=== PATIENT | male | born 1995 | race Caucasian/White ===

== ENCOUNTER 2017-06-21 17:23 | Inpatient (IN) | payer MEDICAID, OTHER ==
[~2017-06-21] VITALS: Ht 177.8 cm; Wt 60.6 kg
[2017-06-21 17:35] LABS: BASOPHILS # (AUTO) 0.01 K/uL (0.00-0.20); BASOPHILS % (AUTO) 0.1 % (0.0-2.0); EOSINOPHILS # (AUTO) 0.07 K/uL (0.00-0.70); HEMATOCRIT 47.2 % (41-53); HEMOGLOBIN 16.3 g/dL (13.5-17.5); LYMPHOCYTES # (AUTO) 2.2 K/uL (1.0-4.8); LYMPHOCYTES % (AUTO) 29.6 % (22.0-44.0); MEAN CORPUSCULAR HEMOGLOBIN 30.9 pg (26.0-34.0); MEAN CORPUSCULAR HGB CONC 34.5 G/dL (31.0-37.0); MEAN CORPUSCULAR VOLUME 90 fL (80-100); MONOCYTES # (AUTO) 0.6 K/uL (0.1-1.0); MONOCYTES % (AUTO) 7.4 % (2.0-9.0); NEUTROPHILS # (AUTO) 4.7 K/uL (1.8-7.7); PLATELET COUNT (AUTO) 255 K/uL (150-450); RED BLOOD CELL COUNT(AUTO) 5.27 MIL/uL (4.50-5.90); RED CELL DISTRIBUTION WIDTH 12.5 % (11.5-14.5); WHITE BLOOD COUNT (AUTO) 7.5 K/uL (4.5-11.0)
[2017-06-21 17:47] LABS: ANION GAP 7 mmol/L (8-16); CALCIUM, TOTAL 9.7 mg/dL (8.8-10.5); CARBON DIOXIDE 28 mmol/L (22-29); CHLORIDE 105 mmol/L (98-107); CREATININE 0.99 mg/dL (0.60-1.30); GLOMERULAR FILTR. RATE CALC > 60 mL/min (>60); POTASSIUM 3.8 mmol/L (3.5-5.1); SODIUM SERUM 140 mmol/L (136-145); UREA NITROGEN, BLOOD 13 mg/dL (7-18)
[2017-06-21 17:53] LABS: ALANINE AMINOTRANSFERASE 20 U/L (12-78); ALBUMIN 4.6 g/dL (3.4-5.0); ASPARTATE AMINOTRANSFERASE 14 U/L (15-37); BILIRUBIN,TOTAL 0.4 mg/dL (0.1-1.0); TOTAL PROTEIN, SERUM 8.3 g/dL (6.4-8.2)
[2017-06-21] MEDS ORDERED: ZOLPIDEM TARTRATE 10 MG TABLET PO PRN (18:45)
[2017-06-21] MEDS ORDERED: HALOPERIDOL 5 MG TABLET PO PRN (18:45)
[2017-06-21] MEDS ORDERED: LORazepam 2 MG TABLET PO PRN (18:45)
[2017-06-21] MEDS ORDERED: LORazepam 2 MG/ML VIAL IM ONE (20:15)
[2017-06-21] MEDS ORDERED: DiphenhydrAMINE HCL 50 MG/ML VIAL IM ONE (20:15)
[2017-06-21] MEDS ORDERED: HALOPERIDOL LACTATE 5 MG/ML VIAL IM ONE (20:15)
[2017-06-21 23:05] VITALS: BP 122/74
[2017-06-22 07:09] VITALS: BP 118/74
[2017-06-22 08:51] VITALS: BP 108/66
[2017-06-22] MEDS ORDERED: ACETAMINOPHEN 325 MG TABLET PO PRN (09:45)
[2017-06-22] MEDS ORDERED: BENZOCAINE/MENTHOL LOZENGE MM PRN (09:45)
[2017-06-22] MEDS ORDERED: LOPERAMIDE HCL 2 MG CAPSULE PO PRN (09:45)
[2017-06-22] MEDS ORDERED: ONDANSETRON HCL 4 MG TABLET PO PRN (09:45)
[2017-06-22] MEDS ORDERED: PETROLATUM,WHITE 71 GM JELLY TP PRN (09:45)
[2017-06-22] MEDS ORDERED: MAGNESIUM HYDROXIDE SUSPENSION 30 ML UDCUP PO PRN (09:45)
[2017-06-22] MEDS ORDERED: MAG HYDROX/AL HYDROX/SIMETH ES 30 ML SUSPENSION UDCUP PO PRN (09:45)
[2017-06-22] MEDS ORDERED: BACITRACIN 28.4 GM OINTMENT TP PRN (09:45)
[2017-06-22] MEDS ORDERED: CloNIDine HCL 0.1 MG TABLET PO PRN (09:45)
[2017-06-22] MEDS ORDERED: IBUPROFEN 600 MG TABLET PO PRN (09:45)
[2017-06-22] MEDS ORDERED: ALBUTEROL SULFATE HFA 90 MCG/PUFF 8 GM INHALER IH PRN (09:45)
[2017-06-22 16:47] VITALS: BP 129/66
[2017-06-22] MEDS: RisperiDONE 0.5 MG TABLET PO SCH (20:36)
[2017-06-23 06:43] VITALS: BP 104/63
[2017-06-23 09:15] VITALS: BP 145/71
[2017-06-23] MEDS: RisperiDONE 0.5 MG TABLET PO SCH ×2 (09:36→20:53)
[2017-06-23 16:00] VITALS: BP 137/84
[2017-06-24 06:30] VITALS: BP 126/76
[2017-06-24] MEDS: RisperiDONE 0.5 MG TABLET PO SCH ×2 (08:44→20:43)
[2017-06-24 09:00] LABS: CHOL/HDL RATIO 2.3 (4.2-7.3)
[2017-06-24 13:13] VITALS: BP 127/96
[2017-06-24 16:39] VITALS: BP 131/83
[2017-06-25 06:46] VITALS: BP 128/66
[2017-06-25] MEDS: RisperiDONE 0.5 MG TABLET PO SCH ×2 (08:39→20:24)
[2017-06-25 09:46] VITALS: BP 127/77
[2017-06-25 16:41] VITALS: BP 131/84
[2017-06-26 06:11] VITALS: BP 127/66
[2017-06-26] MEDS: RisperiDONE 0.5 MG TABLET PO SCH ×2 (08:48→20:56)
[2017-06-26 09:11] VITALS: BP 119/60
[2017-06-26 16:37] VITALS: BP 118/80
[2017-06-26] MEDS ORDERED: RISP0.5T61 PO (16:53)
== END 2017-06-26 19:00 | disposition home or self-care (01) | DRG 751 ==
LOC: EMS 17:25 → AHU 21:26 → EDBD 21:26 → B2S 22:02
DX: F29 Unspecified psychosis not due to a substance or known physiological condition (principal); E44.1 Mild protein-calorie malnutrition; F15.10 Other stimulant abuse, uncomplicated; F12.90 Cannabis use, unspecified, uncomplicated; F41.9 Anxiety disorder, unspecified; F90.9 Attention-deficit hyperactivity disorder, unspecified type; G47.00 Insomnia, unspecified; Z71.51 Drug abuse counseling and surveillance of drug abuser
CPT/HCPCS: 70450; 96372; 99285; G0480; J1200; J1630; J2060

== ENCOUNTER 2022-03-03 05:04 | Inpatient (IN) | payer MEDICAID, OTHER ==
[~2022-03-03] VITALS: Ht 177.8 cm; Wt 65.3 kg
[~2022-03-03 05:04] MED LIST: RISP0.5T61 PO
[2022-03-03 05:30] LABS: BASOPHILS % (AUTO) 0.3 % (0.0-2.0); EOSINOPHILS % (AUTO) 0.4 % (1.0-6.0); HEMATOCRIT 35.3 % (41-53); HEMOGLOBIN 12.4 g/dL (13.5-17.5); LYMPHOCYTES # (AUTO) 0.9 K/uL (1.0-4.8); LYMPHOCYTES % (AUTO) 10.1 % (22.0-44.0); MEAN CORPUSCULAR HGB CONC 35.2 G/dL (31.0-37.0); MEAN CORPUSCULAR VOLUME 88 fL (80-100); MONOCYTES # (AUTO) 0.6 K/uL (0.1-1.0); MONOCYTES % (AUTO) 6.4 % (2.0-9.0); NEUTROPHILS # (AUTO) 7.4 K/uL (1.8-7.7); NEUTROPHILS % (AUTO) 82.8 % (40.0-70.0); PLATELET COUNT (AUTO) 260 K/uL (150-450); RED BLOOD CELL COUNT(AUTO) 4.01 MIL/uL (4.50-5.90); RED CELL DISTRIBUTION WIDTH 13.3 % (11.5-14.5)
[2022-03-03 05:40] LABS: ANION GAP 10 mmol/L (8-16); CALCIUM, TOTAL 8.7 mg/dL (8.8-10.5); CARBON DIOXIDE 28 mmol/L (22-29); CHLORIDE 101 mmol/L (98-107); CREATININE 0.95 mg/dL (0.60-1.30); GLOMERULAR FILTR. RATE CALC > 60 mL/min (>60); GLUCOSE,RANDOM 110 mg/dL (70-110); POTASSIUM 3.5 mmol/L (3.5-5.1); SODIUM SERUM 139 mmol/L (136-145); UREA NITROGEN, BLOOD 27 mg/dL (7-18)
[2022-03-03 05:50] LABS: ALANINE AMINOTRANSFERASE 20 U/L (12-78); ALBUMIN 3.7 g/dL (3.4-5.0); ALKALINE PHOSPHATASE 75 U/L (46-116); ASPARTATE AMINOTRANSFERASE 27 U/L (15-37); BILIRUBIN,TOTAL 0.4 mg/dL (0.1-1.0); TOTAL PROTEIN, SERUM 7.4 g/dL (6.4-8.2)
[2022-03-03] MEDS ORDERED: ZOLPIDEM TARTRATE 10 MG TABLET PO PRN (06:30)
[2022-03-03 07:05] LABS: COVID AG,FIA SOURCE NASAL SWAB
[2022-03-03 09:59] VITALS: BP 136/81
[2022-03-03 16:22] VITALS: BP 128/78
[2022-03-03] MEDS ORDERED: PETROLATUM,WHITE 28 GM JELLY TP PRN (16:45)
[2022-03-03] MEDS ORDERED: MAGNESIUM HYDROXIDE SUSPENSION 30 ML UDCUP PO PRN (16:45)
[2022-03-03] MEDS ORDERED: CloNIDine HCL 0.1 MG TABLET PO PRN (16:45)
[2022-03-03] MEDS ORDERED: DOCUSATE SODIUM 100 MG CAPSULE PO PRN (16:45)
[2022-03-03] MEDS ORDERED: MAG HYDROX/AL HYDROX/SIMETH ES 30 ML SUSPENSION UDCUP PO PRN (16:45)
[2022-03-03] MEDS ORDERED: LOPERAMIDE HCL 2 MG CAPSULE PO PRN (16:45)
[2022-03-03] MEDS ORDERED: BENZOCAINE/MENTHOL LOZENGE PO PRN (16:45)
[2022-03-03] MEDS ORDERED: BACITRACIN 28 GM OINTMENT TP PRN (16:45)
[2022-03-03] MEDS ORDERED: ALBUTEROL SULFATE HFA 90 MCG/PUFF 8 GM INHALER IH PRN (16:45)
[2022-03-03] MEDS ORDERED: ONDANSETRON HCL 4 MG TABLET PO PRN (16:45)
[2022-03-03] MEDS ORDERED: ACETAMINOPHEN 325 MG TABLET PO PRN (16:45)
[2022-03-03] MEDS ORDERED: IBUPROFEN 600 MG TABLET PO PRN (16:45)
[2022-03-03] MEDS ORDERED: OMEPRAZOLE 20 MG CAPSULE PO PRN (16:45)
[2022-03-04 01:25] VITALS: BP 130/88
[2022-03-04 08:30] VITALS: BP 114/77
[2022-03-04 16:19] VITALS: BP 124/80
[2022-03-04] MEDS: LORazepam 2 MG TABLET PO PRN (16:33)
[2022-03-04] MEDS: HALOPERIDOL 5 MG TABLET PO PRN (16:33)
[2022-03-05 04:59] VITALS: BP 104/64
[2022-03-05 08:24] VITALS: BP 114/68
[2022-03-05 16:22] VITALS: BP 130/87
[2022-03-05] MEDS: HALOPERIDOL 5 MG TABLET PO PRN (17:39)
[2022-03-05] MEDS: LORazepam 2 MG TABLET PO PRN (17:39)
[2022-03-05] MEDS: OLANZapine 7.5 MG TABLET PO SCH (20:31)
[2022-03-06 06:24] VITALS: BP 131/91
[2022-03-06 07:42] LABS: APPEARANCE,URINE CLEAR (CLEAR); BILIRUBIN,URINE NEGATIVE (NEGATIVE); GLUCOSE, URINE (UA) NEGATIVE (NEGATIVE); KETONES,URINE NEGATIVE (NEGATIVE); LEUKOCYTE ESTERASE ,URINE TRACE (NEGATIVE); NITRATE,URINE NEGATIVE (NEGATIVE); OCCULT BLOOD,URINE NEGATIVE (NEGATIVE); PROTEIN,URINE 30-70 mg/dL (NEGATIVE); SPECIFIC GRAVITIY, URINE 1.028 (1.003-1.030)
[2022-03-06 07:47] LABS: AMPHET/METH SCREEN,URINE NEGATIVE (NEGATIVE); BARBITURATE SCREEN, URINE NEGATIVE (NEGATIVE); BENZODIAZEPINES SCREEN,URINE NEGATIVE (NEGATIVE); CANNABINOID SCREEN,URINE NEGATIVE (NEGATIVE); COCAINE SCREEN,URINE NEGATIVE (NEGATIVE); METHADONE SCREEN, URINE NEGATIVE (NEGATIVE); OPIATE SCREEN,URINE NEGATIVE (NEGATIVE)
[2022-03-06 07:51] LABS: PHENCYCLIDINE SCREEN,URINE NEGATIVE (NEGATIVE)
[2022-03-06 08:28] VITALS: BP 131/91
[2022-03-06 10:27] LABS: BACTERIA,URINE None Seen /HPF (None Seen); RBC,URINE None Seen /HPF (0-2); TRIPLE PHOSPHATE CRYSTAL,UR Rare /LPF (None Seen)
[2022-03-06 16:13] VITALS: BP 132/73
[2022-03-06] MEDS: LORazepam 2 MG TABLET PO PRN (17:05)
[2022-03-06] MEDS: HALOPERIDOL 5 MG TABLET PO PRN (17:05)
[2022-03-06] MEDS: OLANZapine 7.5 MG TABLET PO SCH (20:30)
[2022-03-07 05:54] VITALS: BP 113/61
[2022-03-07 08:21] VITALS: BP 114/68
[2022-03-07 16:19] VITALS: BP 117/74
[2022-03-07] MEDS: OLANZapine 7.5 MG TABLET PO SCH (20:46)
[2022-03-08 05:06] VITALS: BP 106/60
[2022-03-08 08:39] VITALS: BP 98/56
[2022-03-08 16:23] VITALS: BP 110/60
[2022-03-08] MEDS: LORazepam 2 MG TABLET PO PRN (16:28)
[2022-03-08] MEDS: HALOPERIDOL 5 MG TABLET PO PRN (16:28)
[2022-03-08] MEDS: OLANZapine 7.5 MG TABLET PO SCH (20:17)
[2022-03-09 06:28] VITALS: BP 101/56
[2022-03-09] MEDS: HALOPERIDOL 5 MG TABLET PO PRN ×2 (08:52→16:12)
[2022-03-09] MEDS: LORazepam 2 MG TABLET PO PRN ×2 (08:52→16:12)
[2022-03-09 16:11] VITALS: BP 122/79
[2022-03-09] MEDS: OLANZapine 10 MG TABLET PO SCH (20:15)
[2022-03-10 04:55] VITALS: BP 100/61
[2022-03-10 08:36] VITALS: BP 116/71
[2022-03-10 16:11] VITALS: BP 122/78
[2022-03-10] MEDS: OLANZapine 10 MG TABLET PO SCH (20:01)
[2022-03-10] MEDS: LORazepam 2 MG TABLET PO PRN (20:01)
[2022-03-11 04:09] VITALS: BP 109/60
[2022-03-11 08:12] VITALS: BP 111/76
[2022-03-11 16:17] VITALS: BP 128/68
[2022-03-11] MEDS ORDERED: OLAN10TA74 PO (19:21)
== END 2022-03-11 19:38 | disposition home or self-care (01) | DRG 750 ==
LOC: EMS 05:05 → B3A 06:49
PROVIDERS: ADMIT Psychiatry & Neurology Psychiatry; ATTEND Psychiatry & Neurology Psychiatry
DX: F25.9 Schizoaffective disorder, unspecified (principal); E44.1 Mild protein-calorie malnutrition; R45.851 Suicidal ideations; F15.10 Other stimulant abuse, uncomplicated; F41.9 Anxiety disorder, unspecified; F90.9 Attention-deficit hyperactivity disorder, unspecified type; F94.0 Selective mutism; F12.10 Cannabis abuse, uncomplicated; Z20.822 Contact with and (suspected) exposure to COVID-19; G47.00 Insomnia, unspecified; Z56.0 Unemployment, unspecified; Z68.20 Body mass index [BMI] 20.0-20.9, adult
CPT/HCPCS: 80053; 81001; 85025; 99285; G0480

== ENCOUNTER 2025-05-08 20:03 | Inpatient (IN) | payer MEDICAID ==
[~2025-05-08] VITALS: Ht 177.8 cm; Wt 91.7 kg
[~2025-05-08 20:03] MED LIST changes: +OLAN10TA74 PO; -RISP0.5T61 PO
[2025-05-08] MEDS ORDERED: MAGNESIUM HYDROXIDE SUSPENSION 30 ML UDCUP PO PRN (21:00)
[2025-05-08] MEDS ORDERED: LOPERAMIDE HCL 2 MG CAPSULE PO PRN (21:00)
[2025-05-08] MEDS ORDERED: ACETAMINOPHEN 325 MG TABLET PO PRN (21:00)
[2025-05-08] MEDS ORDERED: PROMETHAZINE HCL 25 MG TABLET PO PRN (21:00)
[2025-05-08] MEDS ORDERED: GuaiFENesin/D-METHORPHAN [SUGAR-FREE] 200-20MG/10 ML SYRUP UDCUP PO PRN (21:00)
[2025-05-08] MEDS ORDERED: OLANZapine 5 MG RAPDIS TABLET PO PRN (21:00)
[2025-05-08] MEDS: MELATONIN 5 MG TABLET PO SCH (22:12)
[2025-05-08 22:15] LABS: GLUCOMETER DEV NAME(LOC) POC.BV; POC SARS-COV2 AG, FIA NEGATIVE (NEGATIVE)
[2025-05-08 22:41] VITALS: BP 138/95; PULSE 75; RESP 18; TEMP 98; O2SAT 97
[2025-05-09] MEDS: XANOMELINE TART/TROSPIUM CHLOR 100-20 MG CAPSULE PO SCH (07:12)
[2025-05-09 08:20] VITALS: BP 137/85; PULSE 96; RESP 17; TEMP 97.9; O2SAT 100
[2025-05-09 08:33] LABS: PLATELET COUNT (AUTO) 211 K/uL (150-450); RED BLOOD CELL COUNT(AUTO) 5.23 MIL/uL (4.50-5.90); RED CELL DISTRIBUTION WIDTH 13.5 % (11.5-14.5); WHITE BLOOD COUNT (AUTO) 8.7 K/uL (4.5-11.0)
[2025-05-09 08:58] LABS: ASPARTATE AMINOTRANSFERASE 25 U/L (15-37); CALCIUM, TOTAL 8.5 mg/dL (8.8-10.5); CHOL/HDL RATIO 2.7 (4.2-7.3); CREATININE 1.07 mg/dL (0.60-1.30); GLOMERULAR FILTR. RATE CALC > 60 mL/min (>60); GLUCOSE,RANDOM 88 mg/dL (70-110); LDL CHOL (CALC.) 77 mg/dL (0-130); SODIUM SERUM 139 mmol/L (136-145); TOTAL PROTEIN, SERUM 6.8 g/dL (6.4-8.2); UREA NITROGEN, BLOOD 17 mg/dL (7-18)
[2025-05-09] MEDS: MULTIVITAMINS WITH MINERALS, THERAPEUTIC TABLET PO SCH (10:07)
[2025-05-09] MEDS: FOLIC ACID 1 MG TABLET PO SCH (10:07)
[2025-05-09] MEDS: NALTREXONE HCL 50 MG TABLET PO SCH (10:07)
[2025-05-09] MEDS: THIAMINE 100 MG TABLET PO SCH (10:07)
[2025-05-09] MEDS: NICOTINE POLACRILEX 2 MG LOZENGE PO PRN (13:12)
[2025-05-09 20:18] VITALS: BP 134/94; PULSE 98; RESP 18; TEMP 97.4; O2SAT 98
[2025-05-10 08:17] VITALS: BP 144/87; PULSE 91; RESP 18; TEMP 96.1; O2SAT 98
[2025-05-10 09:43] LABS: PH,URINE DRUG SCREEN 7.5 (5.0-8.0)
[2025-05-10 09:51] LABS: ALCOHOL, URINE DRUG SCREEN NEGATIVE (NEGATIVE); AMPHET/METH SCREEN,URINE NEGATIVE (NEGATIVE); BARBITURATE SCREEN, URINE NEGATIVE (NEGATIVE); CANNABINOID SCREEN,URINE NEGATIVE (NEGATIVE); COCAINE SCREEN,URINE NEGATIVE (NEGATIVE); METHADONE SCREEN, URINE NEGATIVE (NEGATIVE)
[2025-05-10 22:31] VITALS: BP 129/93; PULSE 97; RESP 18; TEMP 98.6; O2SAT 97
[2025-05-11 08:27] VITALS: BP 138/89; PULSE 86; RESP 17; TEMP 95.4; O2SAT 95
[2025-05-11 13:42] VITALS: BP 123/87; PULSE 91; RESP 17; TEMP 97.7; O2SAT 98
[2025-05-11 17:04] VITALS: BP 130/81; RESP 17; O2SAT 98
[2025-05-11 20:13] VITALS: BP 130/81; PULSE 82; RESP 17; TEMP 98.2; O2SAT 99
[2025-05-12 08:26] VITALS: BP 127/87; PULSE 74; RESP 17; TEMP 97.3; O2SAT 98
[2025-05-12 20:20] VITALS: BP 121/78; PULSE 87; RESP 17; TEMP 97.7; O2SAT 97
[2025-05-12] MEDS: ZOLPIDEM TARTRATE 10 MG TABLET PO PRN (21:10)
[2025-05-13] MEDS: MAG HYDROX/ALUMINUM HYD/SIMETH ES 30 ML SUSPENSION UDCUP PO PRN (06:56)
[2025-05-13 08:36] VITALS: BP 145/98; PULSE 96; RESP 17; TEMP 97.4; O2SAT 98
[2025-05-13 12:12] VITALS: BP 125/82; PULSE 100; RESP 16; O2SAT 100
[2025-05-13] MEDS: TUBERCULIN, PURIFIED PROTEIN DERIVATIVE 5 TU/0.1 ML SYRINGE ID ONE (18:39)
[2025-05-13 20:45] VITALS: BP 120/80; PULSE 99; RESP 17; TEMP 97.5; O2SAT 99
[2025-05-14 19:51] VITALS: BP 118/78; PULSE 88; RESP 18; TEMP 97.4; O2SAT 97
[2025-05-14 20:59] VITALS: BP 138/82; PULSE 91; RESP 18; TEMP 97.2; O2SAT 91
[2025-05-15 08:51] VITALS: BP 127/89; PULSE 100; RESP 17; TEMP 97.6; O2SAT 98
[2025-05-15 20:24] VITALS: BP 132/98; PULSE 92; RESP 18; TEMP 97.9; O2SAT 100
[2025-05-16 08:34] VITALS: BP 133/86; PULSE 97; RESP 17; TEMP 98; O2SAT 99
[2025-05-16 09:20] LABS: APPEARANCE,URINE CLEAR (CLEAR); GLUCOSE, URINE (UA) NEGATIVE (NEGATIVE); LEUKOCYTE ESTERASE ,URINE NEGATIVE (NEGATIVE); NITRATE,URINE NEGATIVE (NEGATIVE); OCCULT BLOOD,URINE NEGATIVE (NEGATIVE); SPECIFIC GRAVITIY, URINE 1.018 (1.003-1.030)
[2025-05-16 20:09] VITALS: BP 137/93; PULSE 85; RESP 18; TEMP 98; O2SAT 100
[2025-05-17 08:27] VITALS: BP 149/94; PULSE 100; RESP 18; TEMP 97.6; O2SAT 99
[2025-05-17 08:28] LABS: PLATELET COUNT (AUTO) 255 K/uL (150-450); RED BLOOD CELL COUNT(AUTO) 5.56 MIL/uL (4.50-5.90); RED CELL DISTRIBUTION WIDTH 13.4 % (11.5-14.5); WHITE BLOOD COUNT (AUTO) 9.1 K/uL (4.5-11.0)
[2025-05-17 21:17] VITALS: BP 135/84; PULSE 100; RESP 18; TEMP 98.6; O2SAT 97
[2025-05-18 09:16] VITALS: BP 149/95; PULSE 110; RESP 16; TEMP 97.7; O2SAT 99
[2025-05-18 20:23] VITALS: RESP 17
[2025-05-19 08:00] VITALS: BP 152/105; PULSE 100; RESP 17; TEMP 98.6; O2SAT 98
[2025-05-19 21:04] VITALS: BP 149/96; PULSE 86; RESP 18; TEMP 98.7; O2SAT 98
[2025-05-20 12:46] VITALS: BP 150/95; PULSE 88; RESP 18; TEMP 97.8; O2SAT 97
[2025-05-20 20:17] VITALS: BP 113/68; PULSE 93; RESP 18; TEMP 97.5; O2SAT 98
[2025-05-21 09:00] VITALS: BP 158/96; PULSE 96; RESP 16; TEMP 97.7; O2SAT 96
[2025-05-21 20:27] VITALS: BP 138/73; PULSE 76; RESP 18; TEMP 97.9; O2SAT 95
[2025-05-22 15:08] VITALS: RESP 18
[2025-05-22 17:07] LABS: CLOZAPINE & NORCLOZAPINE 247 ng/mL; NORCLOZAPINE 97 ng/mL (Not Estab.)
[2025-05-22 20:33] VITALS: BP 142/81; PULSE 93; RESP 18; TEMP 99; O2SAT 96
[2025-05-22] MEDS: GLYCOPYRROLATE 1 MG TABLET PO SCH (21:00)
[2025-05-22 22:11] VITALS: TEMP 98.4
[2025-05-23 08:29] VITALS: RESP 18
[2025-05-23 10:56] VITALS: BP 136/94; PULSE 85; RESP 16; TEMP 97.2; O2SAT 97
[2025-05-23 20:26] VITALS: BP 131/79; PULSE 78; RESP 17; TEMP 98.2; O2SAT 98
[2025-05-24 08:13] VITALS: BP 131/86; PULSE 97; RESP 18; TEMP 98.1; O2SAT 98
[2025-05-24 08:34] LABS: PLATELET COUNT (AUTO) 233 K/uL (150-450); RED BLOOD CELL COUNT(AUTO) 5.50 MIL/uL (4.50-5.90); RED CELL DISTRIBUTION WIDTH 13.1 % (11.5-14.5); WHITE BLOOD COUNT (AUTO) 9.3 K/uL (4.5-11.0)
[2025-05-24] MEDS ORDERED: NALT50TA33 PO (16:50)
[2025-05-24] MEDS ORDERED: CLOZ100T61 PO (16:50)
[2025-05-24] MEDS ORDERED: AMAN-24 PO (16:50)
[2025-05-24] MEDS ORDERED: GLYC1TAB27 PO (16:50)
[2025-05-24] MEDS ORDERED: HALO10TA21 PO (16:50)
[2025-05-24 20:18] VITALS: BP 149/110; PULSE 114; RESP 17; TEMP 97.4; O2SAT 97
[2025-05-24 22:22] VITALS: BP 136/100; PULSE 100; RESP 18; TEMP 98.6; O2SAT 100
[2025-05-25] MEDS ORDERED: CARV12.530 PO (08:14)
[2025-05-25 09:10] VITALS: BP 145/87; PULSE 100; RESP 16; TEMP 98.7; O2SAT 98
== END 2025-05-25 16:03 | disposition home or self-care (01) | DRG 750 ==
LOC: B2S 21:37
PROVIDERS: ADMIT Psychiatry & Neurology Psychiatry; ATTEND Psychiatry & Neurology Psychiatry
PROC: GZHZZZZ Group Psychotherapy (ICD-10-PCS; principal; 2025-05-09)
PROC: GZ58ZZZ Individual Psychotherapy, Cognitive-Behavioral (ICD-10-PCS; 2025-05-09)
PROC: GZ56ZZZ Individual Psychotherapy, Supportive (ICD-10-PCS; 2025-05-10)
DX: F20.0 Paranoid schizophrenia (principal); R45.851 Suicidal ideations; Z20.822 Contact with and (suspected) exposure to COVID-19; F15.10 Other stimulant abuse, uncomplicated; F90.9 Attention-deficit hyperactivity disorder, unspecified type; E66.9 Obesity, unspecified; F17.200 Nicotine dependence, unspecified, uncomplicated; Z63.9 Problem related to primary support group, unspecified; Z59.9 Problem related to housing and economic circumstances, unspecified; Z65.3 Problems related to other legal circumstances; Z55.9 Problems related to education and literacy, unspecified; Z68.29 Body mass index [BMI] 29.0-29.9, adult
CPT/HCPCS: 71045; 80053; 80061; 80159; 80307; 81003; 83036; 84439; 84443; 85025; 86592; 36415-L1; 36415-TC